=== PATIENT | female | born 1970 | race Caucasian/White ===

== ENCOUNTER 2017-03-17 23:52 | Emergency (ER) | payer BC ==
[~2017-03-17] VITALS: Ht 162.6 cm; Wt 68.5 kg
[2017-03-18 00:20] VITALS: BP 148/92
[2017-03-18] MEDS ORDERED: Solu-MEDROL 125mg Inj IVP ONE (00:30)
[2017-03-18] MEDS ORDERED: HYDROmorphone 1mg/ml Carpuject IVP ONE ×2 (00:30→01:15)
[2017-03-18 00:45] LABS: APPEARANCE,URINE CLEAR; KETONES,URINE NEGATIVE (NEGATIVE); LEUKOCYTE ESTERASE ,URINE NEGATIVE (NEGATIVE); NITRITE,URINE NEGATIVE (NEGATIVE); PH,URINE 8 (4.5-8.0); PROTEIN,URINE NEGATIVE (NEGATIVE); UROBILINOGEN,URINE NORMAL MG/DL (0.0-1.0)
[2017-03-18 00:50] LABS: BASOPHILS % (AUTO) 1.4 % (0.0-2.0); EOSINOPHILS % (AUTO) 2.8 % (0.0-3.0); LYMPHOCYTES % (AUTO) 30.9 % (20.0-45.0); MEAN CORPUSCULAR HEMOGLOBIN 25.8 PG (27.0-31.0); MEAN CORPUSCULAR HGB CONC 30.5 G/DL (32.0-36.0); MEAN CORPUSCULAR VOLUME 84 FL (80-99); MONOCYTES % (AUTO) 7.7 % (1.0-10.0); NEUTROPHILS % (AUTO) 57.2 % (45.0-75.0); PLATELET COUNT 756 K/UL (150-450); RED BLOOD COUNT 4.44 M/UL (4.20-5.40); RED CELL DISTRIBUTION WIDTH 12.7 % (11.6-14.8); WHITE BLOOD COUNT 13.2 K/UL (4.8-10.8)
--- NOTE | 2017-03-18 00:52 | Emergency Room Report ---
History of Present Illness General Chief Complaint: Pain Source: Patient Present Illness HPI Is a 46-year-old female with history of recent lumbar fusion of L5-S1 3 weeks ago. Since then she been having problem with her back and pain control. Has seen her doctor twice for this. Had CT scan and x-ray which were unremarkable. She presents with chief complaint of lower back pain that got worse today after she went to a concert. She's been standing all day. Pain going down her right leg. Similar symptom as before. Said that [place] is not helping. No nausea no vomiting. No trauma. No fever or chills. No incontinence of bowel or urine. No numbness. Worse in certain position. Pain is 10 out of 10. 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 Review of Systems Eye: Denies: eye pain, blurred vision ENT: Denies: ear pain, nose congestion, throat swelling Respiratory: Denies: cough, shortness of breath Cardiovascular: Denies: chest pain, palpitations Gastrointestinal: Denies: abdominal pain, diarrhea, nausea, vomiting Musculoskeletal: Reports: back pain, Denies: joint pain Skin: Denies: rash Neurological: Denies: headache, numbness Endocrine: Denies: increased thirst, increased urine Hematologic/Lymphatic: Denies: easy bruising All Other Systems: negative except mentioned in HPI Physical Exam Vital Signs Date Time Temp Pulse Resp B/P (MAP) Pulse Ox O2 Delivery O2 Flow Rate FiO2 03/18/17 00:03 98.1 11 18 150/94 98 Room Air vitals with high blood pressure Sp02 EP Interpretation: reviewed, normal General Appearance: well appearing, no apparent distress, alert Head: normocephalic, atraumatic Eyes: bilateral eye PERRL, bilateral eye EOMI ENT: hearing grossly normal, normal pharynx Neck: full range of motion, supple, no meningismus Respiratory: chest non-tender, lungs clear, normal breath sounds Cardiovascular #1: regular rate, rhythm, no murmur Gastrointestinal: normal bowel sounds, non tender, no mass, no organomegaly, no bruit, non-distended Musculoskeletal: gait/station normal, normal range of motion, other - Surgical site clean. No redness. No edema. Tenderness to the lower area. No anesthesia. Neurologic: alert, oriented x3 Psychiatric: mood/affect normal Skin: warm/dry Medical Decision Making Diagnostic Impression: Primary Impression: Low back pain Qualified Codes: M54.41 - Lumbago with sciatica, right side ER Course Patient with lower back pain. No evidence of cauda equina syndrome, spinal after abscess or neoplastic process. No evidence of postoperative infection. We'll discharge home. Last Vital Signs Date Time Temp Pulse Resp B/P (MAP) Pulse Ox O2 Delivery O2 Flow Rate FiO2 03/18/17 00:03 98.1 11 18 150/94 98 Room Air Status: improved Disposition: HOME, SELF-CARE Condition: Stable Scripts Oxycodone/Acetaminophen 5-325* (PERCOCET 5-325 MG TABLET*) 1 Each Tablet 1 TAB ORAL Q6H Y for For Pain, #30 TAB 0 Refills Prov: IDA DOSS M.D. 03/18/17 Referrals: NOT CHOSEN [facility]/,REFERRING (PCP) Additional Instructions: Followup with your DrWicho in 7 days. Return if symptom worsen. IDA DOSS M.D. Mar 18, 2017 00:52
[2017-03-18 00:53] LABS: ANION GAP 6 mmol/L (5-15); CALCIUM 10.1 MG/DL (8.5-10.1); CARBON DIOXIDE 32 MMOL/L (21-32); CHLORIDE 100 MMOL/L (98-107); CREATININE 0.8 MG/DL (0.55-1.30); GLOMERULAR FILTRATION RATE > 60 mL/min (>60); POTASSIUM 4.2 MMOL/L (3.5-5.1); SODIUM 138 MMOL/L (136-145)
[2017-03-18 00:58] LABS: RBC,URINE 0 /HPF (0 - 2); SQUAMOUS EPITHELIAL CELL,UR OCCASIONAL /LPF (NONE/OCC); WBC,URINE 0 /HPF (0 - 2)
[2017-03-18 01:15] VITALS: BP 142/88
[2017-03-18] MEDS ORDERED: PERCOCET 5-3251 EACH ORAL (01:20)
[2017-03-18 01:30] VITALS: BP 142/88
== END 2017-03-18 01:30 | disposition home or self-care (01) ==
LOC: EMR 03-18 00:20
DX: M54.5 Low back pain (principal); Z98.1 Arthrodesis status; Z91.018 Allergy to other foods; Z91.048 Other nonmedicinal substance allergy status
CPT/HCPCS: 36415; 80048; 81001; 81025; 85025; 96374; 96375; 99284; J1170; J2405; J2930

== ENCOUNTER 2017-03-23 20:59 | Emergency (ER) | payer BC ==
[~2017-03-23] VITALS: Ht 162.6 cm; Wt 67.1 kg
[~2017-03-23 20:59] MED LIST: PERCOCET 5-3251 EACH ORAL
[2017-03-23 21:35] VITALS: BP 163/92
[2017-03-23] MEDS: HYDROmorphone 1mg/ml Carpuject IVP ONE ×2 (22:45→23:38)
[2017-03-23 23:35] VITALS: BP 148/94
--- NOTE | 2017-03-24 00:24 | Emergency Room Report ---
History of Present Illness General Chief Complaint: Back Pain-No Injury Source: Patient Present Illness HPI Is a 46-year-old female who had spinal fusion of her L5-S1 for about a month ago. Since then she did have frequent pain using to be getting worse. I saw her on the for the same. Labs are unremarkable. I did not do any diagnostic study because she had them done recently. She came back with increasing pain. She been out of her spine surgeon who recommend diagnostic study lab tests done. Patient denies any fever or chills. Pain radiating down her leg. No incontinence of bowel or urine. No trauma. No fever. Allergies: Coded Allergies: ADHESIVE (Verified Allergy, Unknown, 03/18/17) GLUTEN (Verified Allergy, Unknown, 03/18/17) ZINC (Verified Allergy, Unknown, 03/18/17) Patient History Past Medical History: see triage record, old chart reviewed Past Surgical History: other Pertinent Family History: none Social History: Denies: smoking Now: No Immunizations: other Reviewed Nursing Documentation: PMH: Agreed, PSxH: Agreed Nursing Documentation-PMH Hx Diabetes: Yes - type 1dm Review of Systems Eye: Denies: eye pain, blurred vision ENT: Denies: ear pain, nose congestion, throat swelling Respiratory: Denies: cough, shortness of breath Cardiovascular: Denies: chest pain, palpitations Gastrointestinal: Denies: abdominal pain, diarrhea, nausea, vomiting Musculoskeletal: Reports: back pain, Denies: joint pain Skin: Denies: rash Neurological: Denies: headache, numbness Endocrine: Denies: increased thirst, increased urine Hematologic/Lymphatic: Denies: easy bruising All Other Systems: negative except mentioned in HPI Physical Exam Vital Signs Date Time Temp Pulse Resp B/P (MAP) Pulse Ox O2 Delivery O2 Flow Rate FiO2 03/23/17 21:32 97.9 102 18 163/92 98 Room Air vitals with high blood pressure Sp02 EP Interpretation: reviewed, normal General Appearance: well appearing, no apparent distress, alert Head: normocephalic, atraumatic Eyes: bilateral eye PERRL, bilateral eye EOMI ENT: hearing grossly normal, normal pharynx Neck: full range of motion, supple, no meningismus Respiratory: chest non-tender, lungs clear, normal breath sounds Cardiovascular #1: regular rate, rhythm, no murmur Gastrointestinal: normal bowel sounds, non tender, no mass, no organomegaly, no bruit, non-distended Musculoskeletal: back normal, gait/station normal, normal range of motion, tender - Tenderness to the lower lumbar area. Surgical site is clean. Psychiatric: mood/affect normal Skin: warm/dry Medical Decision Making Diagnostic Impression: Primary Impression: Back pain Qualified Codes: M54.5 - Low back pain ER Course Patient with back pain. No evidence of cauda equina syndrome, spinal after abscess or infection. No neoplastic process. We'll discharge home. I tried to call Dr. Wayne Laws several times at [phone] but no response. I will give the patient and labs and CT scan reading. We'll discharge home. Lab Results Impression labs unremarkable CT/MRI/US Diagnostic Results CT/MRI/US Diagnostic Results : Imaging Test Ordered: CT a bar spine with IV contrast Impression Read by radiologist. Has postsurgical changes. Last Vital Signs Date Time Temp Pulse Resp B/P (MAP) Pulse Ox O2 Delivery O2 Flow Rate FiO2 03/23/17 21:35 97.9 102 18 163/92 98 Room Air Status: improved Disposition: HOME, SELF-CARE Condition: Stable Referrals: NON PHYSICIAN (PCP) Patient Instructions: Back Pain, Adult Additional Instructions: Followup with Dr. Laws in 1-2 days. Return if symptoms worsen. May need another MRI if not better. IDA DOSS M.D. Mar 24, 2017 00:24
[2017-03-24 00:30] VITALS: BP 148/94
--- NOTE | 2017-03-24 12:13 | Diagnostic Imaging Report ---
Indication: Back pain Technique: Administration nonionic contrast. Spiral acquisitions obtained through the lumbar spine. Total dose length product 310 mGycm. CTDIvol(s) 12 mGy. Dose reduction achieved using automated exposure control Comparison: None Findings: There is posterior fusion hardware using L5 with S1. The left sacral screw protrudes a few millimeters beyond the anterior margin of the sacral vertebral body. The L5 screws are entirely intrapedicular and intravertebral. There is a disc spacer. There is some calcification of the disc which may represent bone graft material. No definite ankylosis of the disc. There is some prosthetic material protruding posterior to the vertebral body on the right. This could compromise the right lateral recess, and right neural foramen but the surrounding spinal canal appears well decompressed The bony alignment is normal. There are is a right hemilaminotomy defect. Bony alignment is normal. Vertebral body heights are preserved. The remaining disc spaces are preserved. No acute fractures. No dislocations. At L4-5, there is circumferential annular bulge, which in combination with ligamentum flavum hypertrophy, and short pedicles, results in mild narrowing of the spinal canal At the remaining disc levels, no significant disc bulge or protrusion, spinal stenosis, or neural foraminal stenosis. The included extraspinal soft tissues are unremarkable. Streak artifact from the hardware obscures the soft tissues at L5-S1. No definite unusual contrast enhancement or abnormal collections are demonstrated, although this is impossible to exclude with any degree of confidence. Impression: Postsurgical changes at L5-S1, as described. Streak artifact from surgical hardware limits visualization at this level. There is some protrusion of prosthetic and graft material posterior to the disc space to the right of midline, which could result in some lateral recess and neural foraminal compromise. Correlation with clinical findings is recommended Mild spinal stenosis at L4-5 No unusual contrast enhancement No acute bony trauma The CT scanner at [facility] is accredited by the [employer] and the scans are performed using protocols designed to limit radiation exposure to as low as reasonably achievable to attain images of sufficient resolution adequate for diagnostic evaluation. Lumbar spine
== END 2017-03-24 00:30 | disposition home or self-care (01) ==
LOC: EMR 21:12
DX: M54.5 Low back pain (principal); Z98.1 Arthrodesis status; E10.9 Type 1 diabetes mellitus without complications; M48.061 Spinal stenosis, lumbar region without neurogenic claudication; Z88.8 Allergy status to other drugs, medicaments and biological substances; Z91.048 Other nonmedicinal substance allergy status
CPT/HCPCS: 36415; 72132; 86140; 96374; 96376; 99284; J1170; Q9967